=== PATIENT | female | born 1980 ===

== ENCOUNTER 2017-01-22 13:37 | Emergency (ER) | payer SELFPAY ==
--- NOTE | 2017-01-22 15:17 | OBDCSUM ---
Datetime: 01/22/2017 14:40 Discharged to, Provider: Home Follow up at, Provider: [facility] Disch Instr Activity: Normal activity Disch Instr Diet: Regular Discharge Instructions, Provider: Routine instructions given Discharge Diagnosis, Provider: Antepartum Bleeding Discharge Time: 01/22/2017 14:50 Follow up in weeks, Provider: 01/23/17 as scheduled already Contraception discussed, Prov: No
--- NOTE | 2017-01-22 15:17 | OBHP ---
Datetime: 01/22/2017 14:30 IP Adm Impression: Term, intrauterine IP Admit Plan: Observation/Evaluation; Discharge home Admit Comment, IP Provider: 36 yo, at 40.2 weeks GA by LMP with VANCE: 01/20/17 presents c/o vagin al spotting "brown color" noticed yesterday afternoon and today in the morning in one occasion. She d enies Ctx, LOF, dysuria, hematuria, N/V/D, abd pain, headache, photophobia,leg swelling. Reports +FM. last sexual intercourse 1 month ago. care in [facility] Dr Denney, last visit last monday, next visit tomorrow. Last Ob Us 10/14 EFW: 2lbs 3 Oz, breech presentation. US bedside today vertex. POBhx: None PMhx: none Allergies: None meds: PNV, Iron 1 tab BID PSurghx: None PShx: No ETOH, rect drugs, cig Blood Group: A+ GBS: neg HIV:NR RPR:NR HbsAg: neg Ab:neg Gc/chlam:neg Rubella: immune Tdap:placed Flu:placed Impression: 36 yo, at 40.2 weeks GA postdates. Vaginal spotting "brown color" Plan -Observation - monitoring continuous Darlien Vera PGY2. Case discussed with Dr sánchez strip reassuring, no active bleeding found, no ROM, no CTx. Patient cleared for discharge. OB Hospitalist Addendum: Pt seen and examined by me. Agree w/ above. 36 yo G1 at 40+2 wks w/ c/o brown spotting, denies ctxns, LOF and reports FM. Spec exam revealed light brown d/c in vault. Cx closed/ 50 and high. NST reactive. Pt discharged home, has an appoint w/ clinic tomorrow. (ES) Pelvic Type - PN: Adequate Extremities - PN: Normal Abdomen - PN: Normal Back - PN: Normal Breast - PN: Not Done Lungs - PN: Normal Heart - PN: Normal Thyroid - PN: Not Done Neurologic - PN: Not Done HEENT - PN: Normal General - PN: Normal Presentation-Admit: Vertex FHR - Baseline A Provider: 140 Membranes, Provider: Intact Contraction Comments Provider: no Comments, ACOG Physical Exam: SSE: mucus plug seen, cervix post, no bleeding US bedside: vertex Pool Provider: Negative Vital Signs Provider: Reviewed; Within Normal Limits IP Chief Complaint: Vaginal bleeding NICHD Variability Prov Fetus A: Moderate 6-25bpm NICHD Accel Fetus A IP Provider: 15X15 FHR Category Provider Fetus A: Category I NICHD Decel Fetus A IP Provider: None Dilatation, Provider: closed Effacement, Provider: 50 Station, Provider: high Genitourinary Exam: Normal DTRs - PN: Not Done
== END 2017-01-22 14:50 | disposition home or self-care (01) ==
LOC: H.EROB2 13:37 → H.EROB 13:49 → H.EROB2 14:50
DX: O26.853 Spotting complicating pregnancy, third trimester (principal); O48.0 Post-term pregnancy; O47.1 False labor at or after 37 completed weeks of gestation; Z3A.40 40 weeks gestation of pregnancy

== ENCOUNTER 2017-01-24 10:33 | Emergency (ER) | payer SELFPAY ==
--- NOTE | 2017-01-24 11:24 | OBHP ---
Datetime: 01/24/2017 11:09 IP Adm Impression: Term, intrauterine IP Admit Plan: Discharge home Admit Comment, IP Provider: 36 y/o at 40w4d EDC 01/20/17, dated by LMP c/w 2nd TM u/s. Pt presen ts with 4 hrs of irregular contractions about 30 min apart, +fm, no lof, no vb. Pain is described as crampy, pressure like pain, comes on/off, pain 2/10, in between pain feels fine. PNC: records reviewed, care at [facility], bp range wnl, GBS neg 12/21/16, HIV/RPR/Hbsag neg, RI, GCT 110, Rh + PNI: 1. anemia: on iron daily latest H/H 2. U/S NT >2.7mm: genetics consult, viral studies wnl, low risk genetic screening, declined amnio, anatomy scan-no anomalies visualized PMHx: denies Pshx: denies Meds: PNV, iron, colace prn All: no medication allergies, dry/itchy throat with irish, denies any sx of anaphylaxis Social Hx: lives with , denies any DV or drug use ROS: no fever, no chill, no cp, no sob, ambulating well see vs and exam above NST interpreted by me today: reactive NST, category 1 tracing A/P: term , primip, early latent labor 1. labor: expectant management, comfort/supportive care instructions given to patient, IOL schedul ed for Monday 7p, suspect patient will deliver before then 2. fetus: category 1 tracing, vertex by exam 3. GBS neg 4. chart labs reviewed and up to date 5. strict kickcounts, ROM and VB precautions given to patient 6. DC home Pelvic Type - PN: Adequate Extremities - PN: Normal Abdomen - PN: Normal Back - PN: Not Done Breast - PN: Not Done Lungs - PN: Normal Heart - PN: Normal Thyroid - PN: Not Done Neurologic - PN: Normal HEENT - PN: Normal General - PN: Normal FHR - Baseline A Provider: 150 Membranes, Provider: Intact Contraction Comments Provider: irregular IP Hx Assessment: The History has been Reviewed and is Current Vital Signs Provider: Reviewed; Within Normal Limits IP Chief Complaint: Uterine contractions NICHD Variability Prov Fetus A: Moderate 6-25bpm NICHD Accel Fetus A IP Provider: 15X15 FHR Category Provider Fetus A: Category I NICHD Decel Fetus A IP Provider: None Dilatation, Provider: 1 Effacement, Provider: 20 Station, Provider: -3 Genitourinary Exam: Normal DTRs - PN: Not Done
--- NOTE | 2017-01-24 11:27 | OBDCSUM ---
Datetime: 01/24/2017 11:23 Disch Instr Activity: Normal activity Disch Instr Diet: Regular Discharge Instructions, Provider: Routine instructions given Discharge Diagnosis, Provider: False Labor - Undelivered Discharge Comment, Provider: Early latent labor, strict labor precautions given. IOL scheduled for F riday 7pm if not delivered by then.
== END 2017-01-24 11:23 | disposition home or self-care (01) ==
LOC: H.EROB2 10:33 → H.EROB 10:45 → H.EROB2 11:23
DX: O47.1 False labor at or after 37 completed weeks of gestation (principal); O48.0 Post-term pregnancy; Z3A.40 40 weeks gestation of pregnancy

== ENCOUNTER 2017-01-26 10:03 | Inpatient (IN) | payer MEDICAID, SELFPAY ==
--- NOTE | 2017-01-26 12:29 | OBHP ---
Datetime: 01/26/2017 12:08 IP Adm Impression: Term, intrauterine ; No Active Labor; Intact Membranes IP Admit Plan: Observation/Evaluation Admit Comment, IP Provider: 36-year-old at 39 weeks gestational age presents to the ED complai anna of contractions. Patient denies any vaginal bleeding or leakage of fluids. Patient reports good movement. Otherwise, patient without complaints. records reviewed. Patient requests un remarkable. GBS negative Past medical history anemia Past surgical history none Medications vitamins, ferrous sulfate No known drug allergies Obstetrical history Social history no tobacco, no cough, no drugs Physical exam: Deferred physical exam findings Assessment: 36-year-old at 39 weeks gestational age with contractions, no evidence of active labor at th is time. Maternal well-being and well-being reassuring at this time. Plan: Plan to observe patient at OB ED and we'll reexamine. Discussed plan with patient and all patient questions answered. Pelvic Type - PN: Adequate Extremities - PN: Normal Abdomen - PN: Normal Back - PN: Normal Breast - PN: Normal Lungs - PN: Normal Heart - PN: Normal Thyroid - PN: Normal Neurologic - PN: Normal HEENT - PN: Normal General - PN: Normal FHR - Baseline A Provider: 140s-150s Membranes, Provider: Intact Contraction Comments Provider: q2-5min Pool Provider: Negative IP Hx Assessment: The History has been Reviewed and is Current Vital Signs Provider: Reviewed; Within Normal Limits IP Chief Complaint: Uterine contractions NICHD Variability Prov Fetus A: Moderate 6-25bpm FHR Category Provider Fetus A: Category I NICHD Decel Fetus A IP Provider: None Dilatation, Provider: FT Effacement, Provider: 0 Station, Provider: -4 Genitourinary Exam: Normal DTRs - PN: Normal
[2017-01-26 15:21] VITALS: BMI 32.2
[2017-01-26] MEDS ORDERED: Lactated Ringer's 1,000 ML IV SCH ×2 (15:30→16:00)
[2017-01-26] MEDS: Lactated Ringer's 1,000 ML IV SCH (16:35)
[2017-01-26 17:07] LABS: BASO % 0.1 % (0.0-2.0); EOS % 0.3 % (0.0-4.0); HEMATOCRIT 37.5 % (34.0-47.0); LYMPH # 1.9 K/uL (1.0-4.3); LYMPH % 22.8 % (20.0-40.0); MEAN CELL VOLUME 76.4 fl (81.0-99.0); MEAN CORPUSCULAR HEMOGLOBIN 24.6 pg (27.0-31.0); MEAN CORPUSCULAR HGB CONC 32.2 g/dL (33.0-37.0); MEAN PLATELET VOLUME 9.8 fl (7.2-11.7); MONO # 0.6 K/uL (0.0-0.8); MONO % 7.4 % (0.0-10.0); NEUT # 5.8 K/uL (1.8-7.0); NEUT % 69.4 % (50.0-75.0); NRBC % 0.1 % (0.0-0.0); RED CELL DISTRIBUTION WIDTH 20.9 % (11.5-14.5); WHITE BLOOD COUNT 8.3 K/uL (4.8-10.8)
[2017-01-26 17:16] VITALS: RESP 18; O2SAT 100
[2017-01-26 18:34] LABS: URINE BACTERIA OCC (<OCC); URINE BILIRUBIN NEGATIVE (NEGATIVE); URINE BLOOD MODERATE (NEGATIVE); URINE COLOR YELLOW (YELLOW); URINE GLUCOSE (UA) NEG (Normal); URINE KETONE NEGATIVE (NEGATIVE); URINE LEUKOCYTE ESTERASE NEG Leu/uL (Negative); URINE PROTEIN NEGATIVE (NEGATIVE); URINE UROBILINOGEN 0.2-1.0 mg/dL (0.2-1.0); WBC URINE 5 /hpf (0-5)
[2017-01-26 18:39] LABS: RBC URINE 21 /hpf (0-3)
[2017-01-26] MEDS ORDERED: Oxytocin 30 units/LR 500ML 30 U/500 ML BAG IV SCH (22:00)
[2017-01-27] MEDS: Lactated Ringer's 1,000 ML IV SCH ×4 (02:28→21:43)
[2017-01-27] MEDS ORDERED: Nalbuphine 20 mg/ml Inj (1 ml) IVP PRN (04:44)
--- NOTE | 2017-01-27 09:50 | OBADHP ---
Datetime: 01/27/2017 08:35 FHR - Baseline A Provider: 140-150 Membranes, Provider: Intact NICHD Variability Prov Fetus A: Moderate 6-25bpm NICHD Accel Fetus A IP Provider: 15X15 NICHD Decel Fetus A IP Provider: None Dilatation, Provider: 4 Effacement, Provider: 70 Station, Provider: -1 Datetime: 01/26/2017 12:08 Admit Comment, IP Provider: 36-year-old at 39 weeks gestational age presents to the ED complai anna of contractions. Patient denies any vaginal bleeding or leakage of fluids. Patient reports good movement. Otherwise, patient without complaints. records reviewed. Patient requests un remarkable. GBS negative Past medical history anemia Past surgical history none Medications vitamins, ferrous sulfate No known drug allergies Obstetrical history Social history no tobacco, no cough, no drugs Physical exam: Deferred physical exam findings Assessment: 36-year-old at 39 weeks gestational age with contractions, no evidence of active labor at th is time. Maternal well-being and well-being reassuring at this time. Plan: Plan to observe patient at OB ED and we'll reexamine. Discussed plan with patient and all patient questions answered. After observation, patient with continued contractions with increasing in frequency and intensity. Discussed options with patient. Patient opting for admission for pain control and management of labo r. Maternal well-being and well-being is reassuring at this time. Pelvic Type - PN: Adequate Extremities - PN: Normal Abdomen - PN: Normal Back - PN: Normal Breast - PN: Normal Lungs - PN: Normal Heart - PN: Normal Thyroid - PN: Normal Neurologic - PN: Normal HEENT - PN: Normal General - PN: Normal Contraction Comments Provider: q2-5min Pool Provider: Negative IP Hx Assessment: The History has been Reviewed and is Current Vital Signs Provider: Reviewed; Within Normal Limits IP Chief Complaint: Uterine contractions FHR Category Provider Fetus A: Category I Genitourinary Exam: Normal DTRs - PN: Normal EGA AdmitDate IP: 40.6 IP Adm Impression: Term, intrauterine ; No Active Labor; Intact Membranes IP Admit Plan: Observation/Evaluation Datetime: 01/22/2017 14:30 Presentation-Admit: Vertex Comments, ACOG Physical Exam: SSE: mucus plug seen, cervix post, no bleeding US bedside: vertex
[2017-01-27] MEDS ORDERED: Lactated Ringer's 1,000 ML IV SCH ×2 (17:15→20:34)
[2017-01-27] MEDS ORDERED: Fentanyl/Bupivacaine HCl 250 ML EPI ONE (19:05)
[2017-01-27] MEDS ORDERED: Bupivacaine HCl 0.25% PF (10 ml) Inj ONE (19:06)
[2017-01-27] MEDS ORDERED: ceFAZolin 1 GM in Sodium Chloride 0.9% 100 ML IVPB ONE (21:23)
[2017-01-27] MEDS ORDERED: Lidocaine 2% PF (10 ml) Amp ONE (22:11)
[2017-01-27] MEDS ORDERED: Morphine 1 mg/ml preservative-free Inj(Duramorph) ONE (22:20)
[2017-01-27] MEDS ORDERED: ePHEDrine 50 mg/ml Inj ONE (22:23)
[2017-01-27] MEDS ORDERED: Oxytocin 30 units/LR 500ML 30 U/500 ML BAG IV ONE (22:42)
[2017-01-27] MEDS ORDERED: Oxytocin 30 units/LR 500ML 30 U/500 ML BAG IV SCH (23:33)
[2017-01-27] MEDS ORDERED: Oxycodone/Acetaminophen 5/325 mg Tab PO PRN ×2 (23:33)
[2017-01-28] MEDS: Lactated Ringer's 1,000 ML IV SCH ×3 (00:05→08:30)
[2017-01-28 07:31] LABS: HEMATOCRIT 21.6 % (34.0-47.0); MEAN CELL VOLUME 76.3 fl (81.0-99.0); MEAN CORPUSCULAR HEMOGLOBIN 24.8 pg (27.0-31.0); MEAN CORPUSCULAR HGB CONC 32.5 g/dL (33.0-37.0); RED CELL DISTRIBUTION WIDTH 21.7 % (11.5-14.5); WHITE BLOOD COUNT 15.5 K/uL (4.8-10.8)
--- NOTE | 2017-01-28 10:41 | OP ---
PROCEDURE DATE: 01/27/2017 PREOPERATIVE DIAGNOSES: Intrauterine at 40 plus weeks, arrest of dilation. POSTOPERATIVE DIAGNOSES: Intrauterine at 40 plus weeks, arrest of dilation. OPERATION PERFORMED: Primary left flap transverse section by Pfannenstiel skin incision. SURGEON: Chantal Lopez MD INSERTER PROMOTIONAL ITEM: Angel Olson MD TYPE OF ANESTHESIA: Spinal. ANESTHESIA ADMINISTERED BY: Dr. Mejia. OPERATIVE FINDINGS: Baby boy, vertex presentation. Apgars 9 and 10, weighing 4290 grams, normal uterus, tubes, and ovaries were identified. Dr. Olson was the engineer assistant of the procedure was instrumental in care of the patient. He helped to create exposure, helpful delivering the and closure of the patient's procedure has not been possible without assistance. ESTIMATED BLOOD LOSS: 900 mL. URINE OUTPUT: Katz catheter put out approximately 100 mL of clear urine. The patient received approximately 2 liters of D5 OR intraoperatively. DESCRIPTION OF PROCEDURE: After informed consent was obtained, the patient was taken to the operating room where she was given spinal anesthesia, she was prepped and draped in the usual sterile fashion. The Pfannenstiel skin incision was then made with the scalpel, carried down to the underlying layer of fascia. The facia was nicked in the midline. The fascial incision was then extended laterally with a Curved Bryan scissors. Superior aspect of the fascial incision was hen grasped with Linda clamps and elevated up and the rectus muscles were dissected off using both sharp and blunt dissection. Attention was then turned to the inferior aspect of the fascial incision with a similar fashion was grasped with Linda clamps, elevated up and the rectus muscles were dissected off using both blunt and sharp dissection. The rectus muscles were then in the midline. The peritoneum identified and entered sharply with the Metzenbaum scissors. The peritoneal incision was then extended superiorly and inferiorly with good visualization of the bladder. The bladder blade was inserted. The vesicouterine peritoneum was identified and entered sharply with the Metzenbaum scissors. The incision was then extended laterally. The bladder flap was created digitally. The bladder blade was then readjusted. A low transverse uterine incision was then made with a scalpel. The incision was then extended laterally with the bandage scissors. The infant's head was then delivered atraumatically. The nose and mouth were suctioned with DeLee suction trap. The cord was clamped and cut. The was handed off to the waiting pediatricians. The placenta was then removed manually. The uterus was exteriorized inferior of all clots and debris. The uterine incision was repaired with 0-Vicryl in a running locked fashion. Second layer of the same suture was used to obtain excellent hemostasis. The uterus was returned to the abdomen. The gutters were cleared of all clots and debris. The uterine incision was noted to be hemostatic. The peritoneum was then closed with 2-0 Vicryl in a running fashion. The muscle was reapproximated with 0-Vicryl in an interrupted fashion. The fascia was closed with 0-Vicryl in an interrupted fashion. The skin was closed with 4-0 needle. All sponge, flap, needle and instrument counts were correct x2 and the patient was taken to the recovery room in awake and stable condition. Chantal Lopez MD
[2017-01-28 15:28] VITALS: BP 93/57; PULSE 114; TEMP 98.4
--- NOTE | 2017-01-29 10:42 | OBPPN ---
Datetime: 01/29/2017 08:10 PP Pain Prov: Within normal limits PP Nausea Prov: Denies PP Flatus Prov: Yes PP BM Prov: Yes PP Breasts Prov: Normal PP Heart Prov: Normal PP Lungs Prov: Normal PP Abdomen/Uterus Prov: Normal PP Lochia Prov: Normal PP Vulva/Perineum Prov: Normal PP CVA Tenderness Prov: Normal PP Extremities Prov: Normal PP C/S Incision Prov: Normal PP Progress Prov: Normal PP Comments Phys Exam Prov: not acute distress. Ambulating with no difficulties. Lungs CTA B/L RRR, S1S2 Abd: Soft, uterus umb level, not distended. BS+. Incision clean and dry No calf tenderness Alert and oriented PP Impression Prov: Normal progression PP Plan Prov: Continue present management PP Progress Note Prov: S: Patient seen at bedside on POD2 in not acute distress. Denies CP, SOB, prashanth f pain, palpitations, dizziness, nausea or vomiting. Lochia is less than menses. Pain controlled with pain meds. Tolerating PO diet well. + Flatus + BM. Breast and bottle feeding. Denies fever PE: See above A_P: 36 y/o in POD2 uncomplicated -C/w current plan -Motrin and percocet PRN for pain -Reg diet -Monitor VS for signs of infection and repeat CBC if fever or persistent elevated HR. -C/W Ferrous sulfate BID -Encourage ambulation and -Anticipated DC 01/30/17 Juan Carlos Crum PGY2 The patient was seen with the resident and I agree with note Anticipate discharge tomorrow IP PP Procedures: None Vital Signs Provider PP: Reviewed
[2017-01-30] MEDS ORDERED: Oxycodone/Acetaminophen 5/325 mg Tab PO PRN ×2 (01:18)
[2017-01-30 09:08] LABS: BASO % 0.2 % (0.0-2.0); EOS # 0.2 K/uL (0.0-0.7); EOS % 1.6 % (0.0-4.0); HEMATOCRIT 20.1 % (34.0-47.0); LYMPH # 1.9 K/uL (1.0-4.3); LYMPH % 18.6 % (20.0-40.0); MEAN CELL VOLUME 77.3 fl (81.0-99.0); MEAN CORPUSCULAR HEMOGLOBIN 25.6 pg (27.0-31.0); MEAN CORPUSCULAR HGB CONC 33.1 g/dL (33.0-37.0); MONO # 0.7 K/uL (0.0-0.8); MONO % 6.9 % (0.0-10.0); NEUT # 7.5 K/uL (1.8-7.0); NEUT % 72.7 % (50.0-75.0); NRBC % 0.1 % (0.0-0.0); RED CELL DISTRIBUTION WIDTH 22.1 % (11.5-14.5); WHITE BLOOD COUNT 10.3 K/uL (4.8-10.8)
--- NOTE | 2017-01-30 13:13 | OBPPN ---
Datetime: 01/30/2017 08:57 PP Pain Prov: Within normal limits PP Nausea Prov: Denies PP Flatus Prov: Yes PP BM Prov: Yes PP Breasts Prov: Normal PP Heart Prov: Normal PP Lungs Prov: Normal PP Abdomen/Uterus Prov: Normal PP Lochia Prov: Normal PP Vulva/Perineum Prov: Normal PP CVA Tenderness Prov: Normal PP Extremities Prov: Normal PP C/S Incision Prov: Normal PP Progress Prov: Normal PP Comments Phys Exam Prov: not acute distress. Ambulating with no difficulties. Lungs CTA B/L RRR, S1S2 Abd: Soft, uterus umb level, not distended. BS+. Incision clean and dry,steri-strips intact. no si gns of infection. No calf tenderness Alert and oriented PP Impression Prov: Normal progression PP Plan Prov: Discharge PP Progress Note Prov: 36 yo now seen at bedside on POD3 in not acute distress. Denies CP, SOB, calf pain, palpitations, nausea or vomiting. Lochia is less than menses. Pain controlled with pain m eds. Tolerating PO diet well. + Flatus + BM. Breast and bottle feeding. Denies any current dizziness or blurry vision. denies fever, chills. PE: See above A_P: 36 y/o in POD3, comfortable, not in acute distress. -Motrin and percocet PRN for pain -Reg diet -H_H this morning 6.6/20.1, Pt is asymptomatic -C/W Ferrous sulfate BID -Encourage ambulation and -Anticipate discharge to home today OBH ADDENDUM: pt seen _ examined by me. agree with above assessment and plan. She denies malaise, fatigue, pal pitations at rest or assnoc with walking. - benefits of reinforced. - pt advise of anemia and import of Fe compliancetake Fe with oj or lemon water IP PP Procedures: None Vital Signs Provider PP: Reviewed
--- NOTE | 2017-01-30 13:19 | OBDCSUM ---
Datetime: 01/30/2017 11:08 Discharged to, Provider: Home Follow up at, Provider: [facility] Disch Instr Activity: May be up to bathroom; May be up for meals; May Shower Disch Instr Diet: Regular Discharge Instructions, Provider: Specific instructions as noted Discharge Diagnosis, Provider: Term Delivered Follow up in weeks, Provider: 1 weeks Discharge Instruct Comment, Prov: postop Contraception discussed, Prov: Yes Disch Activity Restrictions: No exercising; No lifting; No driving; No sexual activity; Nothing in v agina - [place], tampons, douche Discharge Comment, Provider: Encourage Ibuprofen 600 mg 1 tablet every 6 hours as neded for moderate pain Percocet 5/325mg 1 tab every 6 hours as needed if severe pain feosol 325 mg two times a day for anemia Senokot S 50/8.6 one tablet twice a day as needed for constipation Follow up at your clinic in 1 week. Contraception after Delivery: Undecided
--- NOTE | 2017-02-01 08:59 | OBPPN ---
Datetime: 01/28/2017 07:53 PP Progress Note Prov: S: This is a 36 y/o now who had a on 01/27/17 at 22:41 due to arrest of dilation. Pt evaluated on bedside. Pt feeling well with uneventful night. Pain is controlle d with medications. Highest temperature overnight was 100.6 degF. Tylenol was provided. Currently 100 .4 deg F. Pt denies N/V, passing gasses and bowel movement. O: VS WNL. PE: Gen: A_O, resting comfortable on bed, NAD. Lungs: CTAB, No W/R/R. CV: RRR, S1 and S2 present. ABD: BS +, firm fundus below umbilicus. EXT: non-tender calves. A_P: 36 y/o F POD 1, S/P . pt feeling well. Will continue post-C section care. Will monitor temperature until 24 hours post-surgery. Pt encouraged to breast feed and ambulate. Abdi Ang PGY-1. Late entry for January 28 At 23:00pm OB Hospitalist note: This pt was seen and examined by me. Agree with above note. JENNY
--- NOTE | 2017-02-08 13:37 | OBDS ---
DELIVERY PERSONNEL Delivery Doctor: Ross Lopez MD Benzene Worker: Ma. Genesis Mcdonald RN Anesthesiologist: Ashli Mejia MD Resident: MD Олег MATERNAL INFORMATION Delivery Anesthesia: Epidural Estimated Blood Loss (ml): 900 Placenta Cultured: No Maternal Complications: None Provider Comments: see operative report LABOR SUMMARY EDC: 01/20/2017 00:00 No. Babies in Womb: 1 Attempted: No Labor Anesthesia: Epidural LABOR INFORMATION Reason for Induction: Postterm Onset of Labor: 01/26/2017 08:00 Oxytocin: Induction Group B Beta Strep: Negative Steroids Given: None Reason Steroids Not Administered: Not Applicable MEMBRANES Membranes Rupture Method: Artificial Rupture of Membranes: 01/27/2017 10:40 Length of Rupture (hrs): 12.02 Amniotic Fluid Color: Light Meconium Amniotic Fluid Amount: Moderate Amniotic Fluid Odor: Normal STAGES OF LABOR Stage 3 hrs: 0 Stage 3 min: 1 Total Time in Labor hrs: 38 Total Time in Labor min: 42 CSECTION DELIVERY Primary Indication: Other Other Primary Indication: arrest of dilation CSection Urgency: Non Elective CSection Incidence: Primary Labor: Labor CSection Incision: Lower Uterine Transverse BABY A INFORMATION Delivery Date/Time: 01/27/2017 22:41 Method of Delivery: Born in Route : No : N/A Forceps: N/A Vacuum Extraction: Successful Shoulder Dystocia : No ASSISTED DELIVERY BABY A Vacuum Number of Pulls: 1 Vacuum Number of PopOffs: 0 Vacuum Second Worker: kiwi SHOULDER DYSTOCIA BABY A Infant Delivery Date/Time: 01/27/2017 22:41 PRESENTATION/POSITION BABY A Presentation: Cephalic PLACENTA INFORMATION BABY A Placenta Delivery Time : 01/27/2017 22:42 Placenta Method of Delivery: Spontaneous Placenta Status: Delivered SCORES BABY A Heart Rate 1 min: >100 bpm Resp Effort 1 min: Good Cry Reflex Irritability 1 min: Cough or Sneeze or Pulls Away Muscle Tone 1 min: Active Motion Color 1 min: Body [place], Extremities Blue SCORE 1 MIN: 9 Heart Rate 5 min: >100 bpm Resp Effort 5 min: Good Cry Reflex Irritability 5 min: Cough or Sneeze or Pulls Away Muscle Tone 5 min: Active Motion Color 5 min: Completely [place] Resuscitation Effort 5 min: N/A SCORE 5 MIN: 10 INFANT INFORMATION BABY A Gestational Age at Delivery: 41.0 Gestational Status: Term Outcome : Liveborn Condition : Stable Sex: Male IDENTIFICATION/MEDS BABY A ID Band Number: [id number] WEIGHT/LENGTH BABY A Birthweight (gms): 4290 Infant Weight (lb): 9 Infant Weight (oz): 7 CORD INFORMATION BABY A No. Cord Vessels: 3 Nuchal Cord : Around Neck x1, Loose Cord Blood Taken: Yes Suction: Mouth; Nose
== END 2017-01-30 14:00 | disposition home or self-care (01) | DRG 766 ==
LOC: H.EROB2 10:03 → H.L&D 15:55 → H.OB/GYN 01-28 16:49
PROVIDERS: ADMIT Obstetrics & Gynecology; ATTEND Obstetrics & Gynecology
PROC: 4A1HXCZ Monitoring of Products of Conception, Cardiac Rate, External Approach (ICD-10-PCS; 2017-01-26)
PROC: 10D00Z1 Extraction of Products of Conception, Low, Open Approach (ICD-10-PCS; principal; 2017-01-27)
DX: O99.02 Anemia complicating childbirth (principal); D64.9 Anemia, unspecified; O62.1 Secondary uterine inertia; Z3A.39 39 weeks gestation of pregnancy; Z37.0 Single live birth